=== PATIENT | female | born 1975 | race Caucasian/White ===

== ENCOUNTER 2018-03-14 15:29 | Emergency (ER) | payer MEDICAID ==
[~2018-03-14] VITALS: Ht 160 cm; Wt 68.0 kg
[~2018-03-14 15:29] MED LIST: SUCR1ORA2 PO
[2018-03-14] MEDS ORDERED: proCHLORperazine 10 MG/2 ml inj IV ONE (15:50)
[2018-03-14] MEDS ORDERED: diazepam 5mg tablet PO ONE ×3 (15:50→17:40)
[2018-03-14] MEDS ORDERED: diphenhydrAMINE 50 mg/ml inj IV ONE (15:50)
[2018-03-14] MEDS ORDERED: ketorolac trometh. 30mg/ml inj. IV ONE (15:50)
[2018-03-14] MEDS ORDERED: normal saline 1000ML IV soln IVB ONE (15:55)
[2018-03-14] MEDS ORDERED: valproate sod inj 500 MG in normal saline 100ml IV soln 95 ML IV ONE (16:50)
[2018-03-14 18:33] VITALS: BP 109/69
== END 2018-03-14 18:37 | disposition home or self-care (01) ==
LOC: ER 15:30
DX: G43.909 Migraine, unspecified, not intractable, without status migrainosus (principal); M54.2 Cervicalgia; K21.9 Gastro-esophageal reflux disease without esophagitis; Z88.0 Allergy status to penicillin; Z88.8 Allergy status to other drugs, medicaments and biological substances; Z90.710 Acquired absence of both cervix and uterus
CPT/HCPCS: 96365; 96375; 99284; J0780; J1200; J1885; J7030

== ENCOUNTER 2019-08-27 09:32 | Emergency (ER) | payer MEDICAID ==
[~2019-08-27] VITALS: Ht 160 cm; Wt 69.1 kg
[2019-08-27 09:42] VITALS: BP 120/82
[2019-08-27] MEDS ORDERED: ALBU8.5H8 IH (10:06)
[2019-08-27] MEDS ORDERED: BENZ-16 PO (10:06)
[2019-08-27] MEDS ORDERED: METH4TAB81 PO (10:06)
== END 2019-08-27 10:38 | disposition home or self-care (01) ==
LOC: ER 09:32
DX: J45.909 Unspecified asthma, uncomplicated (principal); K21.9 Gastro-esophageal reflux disease without esophagitis; Z90.710 Acquired absence of both cervix and uterus; Z87.891 Personal history of nicotine dependence; Z88.0 Allergy status to penicillin; Z88.8 Allergy status to other drugs, medicaments and biological substances; Z79.899 Other long term (current) drug therapy
CPT/HCPCS: 99283

== ENCOUNTER 2019-10-24 12:29 | Emergency (ER) | payer MEDICAID ==
[~2019-10-24] VITALS: Ht 157.5 cm; Wt 66.8 kg
[~2019-10-24 12:29] MED LIST changes: +ALBU8.5H8 IH; +METH4TAB81 PO
[2019-10-24 13:26] VITALS: BP 137/87
[2019-10-24] MEDS ORDERED: IBUP-1985 PO (13:38)
== END 2019-10-24 14:09 | disposition home or self-care (01) ==
LOC: ER 12:31
DX: S50.01XA Contusion of right elbow, initial encounter (principal); G43.909 Migraine, unspecified, not intractable, without status migrainosus; K21.9 Gastro-esophageal reflux disease without esophagitis; Z88.0 Allergy status to penicillin; Z88.8 Allergy status to other drugs, medicaments and biological substances; Z79.899 Other long term (current) drug therapy; W18.30XA Fall on same level, unspecified, initial encounter; Y93.89 Activity, other specified; Y92.89 Other specified places as the place of occurrence of the external cause; Y99.8 Other external cause status
CPT/HCPCS: 73080; 99283

== ENCOUNTER 2020-01-04 18:37 | Emergency (ER) | payer MEDICAID ==
[~2020-01-04] VITALS: Ht 157.5 cm; Wt 66.8 kg
[~2020-01-04 18:37] MED LIST changes: +IBUP-1985 PO
[2020-01-04 19:02] VITALS: BP 148/81
[2020-01-04] MEDS ORDERED: TRIA15CR61 TOP (22:27)
== END 2020-01-04 23:14 | disposition home or self-care (01) ==
LOC: ER 18:37
DX: R07.89 Other chest pain (principal); R21 Rash and other nonspecific skin eruption; M79.659 Pain in unspecified thigh; G43.909 Migraine, unspecified, not intractable, without status migrainosus; K21.9 Gastro-esophageal reflux disease without esophagitis; Z90.710 Acquired absence of both cervix and uterus; Z88.0 Allergy status to penicillin; Z88.8 Allergy status to other drugs, medicaments and biological substances; Z79.899 Other long term (current) drug therapy
CPT/HCPCS: 71120; 71130; 99284

== ENCOUNTER 2020-05-08 14:21 | Emergency (ER) | payer MEDICAID ==
[~2020-05-08] VITALS: Ht 157.5 cm; Wt 70.0 kg
[2020-05-08 14:26] VITALS: BP 138/102
[2020-05-08] MEDS ORDERED: dexamethasone sod phosphate 10mg/ml inj IV STA (14:39)
[2020-05-08] MEDS ORDERED: ketorolac tromethamine 15mg/ml inj. IV ONE (14:40)
[2020-05-08] MEDS ORDERED: diphenhydrAMINE 50 mg/ml inj IV ONE (14:40)
[2020-05-08] MEDS ORDERED: SUMAtriptan succ. 6 MG/0.5ml vial SQ ONE (14:40)
[2020-05-08] MEDS ORDERED: proCHLORperazine 10 MG/2 ml inj IV ONE (14:40)
[2020-05-08] MEDS ORDERED: diazepam inj 5 MG/ML inj. IV ONE (14:40)
[2020-05-08] MEDS ORDERED: dexamethasone 4mg tablet PO ONE (14:50)
[2020-05-08] MEDS ORDERED: proCHLORperazine 10mg tablet PO ONE (14:50)
[2020-05-08] MEDS ORDERED: diphenhydrAMINE 25mg capsule PO ONE (14:50)
[2020-05-08] MEDS ORDERED: diazepam 5mg tablet PO ONE (14:50)
[2020-05-08] MEDS ORDERED: ONDA4TAB6 PO (15:00)
[2020-05-08] MEDS ORDERED: PROC25SU31 RC (15:00)
[2020-05-08] MEDS ORDERED: SUMA25TA35 PO (15:00)
== END 2020-05-08 16:15 | disposition home or self-care (01) ==
LOC: ER 14:21
DX: G43.909 Migraine, unspecified, not intractable, without status migrainosus (principal); K21.9 Gastro-esophageal reflux disease without esophagitis; Z98.890 Other specified postprocedural states; Z88.0 Allergy status to penicillin; Z88.5 Allergy status to narcotic agent; Z79.899 Other long term (current) drug therapy
CPT/HCPCS: 96372; 96374; 99284; J1885; Q0163; J3030; Q0164

== ENCOUNTER 2020-08-28 11:02 | Emergency (ER) | payer MEDICAID ==
[~2020-08-28] VITALS: Ht 160 cm; Wt 63.0 kg
[~2020-08-28 11:02] MED LIST changes: +ONDA4TAB6 PO; +SUMA25TA35 PO
[2020-08-28 12:23] VITALS: BP 127/76
[2020-08-28] MEDS ORDERED: ketorolac tromethamine 15mg/ml inj. IM ONE (12:40)
[2020-08-28] MEDS ORDERED: ondansetron 4mg rapidly disintigrating tab PO ONE (12:40)
[2020-08-28] MEDS ORDERED: HYDROcodone/acetaminophen 5mg/325mg tablet PO ONE (12:40)
[2020-08-28] MEDS ORDERED: BUPIVAcaine 0.5% W/EPI /PF 30ml vial IM ONE (13:00)
[2020-08-28] MEDS ORDERED: triamcinolone acetonide 40mg/ml inj IM ONE (13:00)
[2020-08-28] MEDS ORDERED: cyclobenzaprine 10mg tablet PO ONE (13:55)
[2020-08-28] MEDS ORDERED: IBUP-1984 PO (14:02)
[2020-08-28] MEDS ORDERED: DEXA4TAB67 PO (14:02)
[2020-08-28] MEDS ORDERED: ORPH100T2 PO (14:02)
== END 2020-08-28 14:16 | disposition home or self-care (01) ==
LOC: ER 11:02
DX: M51.26 Other intervertebral disc displacement, lumbar region (principal); M25.551 Pain in right hip; G43.909 Migraine, unspecified, not intractable, without status migrainosus; K21.9 Gastro-esophageal reflux disease without esophagitis; Z90.710 Acquired absence of both cervix and uterus; Z88.0 Allergy status to penicillin; Z88.8 Allergy status to other drugs, medicaments and biological substances; Z79.899 Other long term (current) drug therapy
CPT/HCPCS: 72192; 96372; 99284; J1885; J3301

== ENCOUNTER 2021-03-06 09:16 | Emergency (ER) | payer MEDICAID ==
[~2021-03-06] VITALS: Ht 162.6 cm; Wt 60.0 kg
[~2021-03-06 09:16] MED LIST changes: +ALBU8.5H17 IH; -ALBU8.5H8 IH; +DEXA4TAB67 PO; +ORPH100T2 PO
[2021-03-06 09:20] VITALS: BP 115/81
== END 2021-03-06 11:09 | disposition home or self-care (01) ==
LOC: ER 09:16
DX: S62.637A Displaced fracture of distal phalanx of left little finger, initial encounter for closed fracture (principal); M79.645 Pain in left finger(s); G43.909 Migraine, unspecified, not intractable, without status migrainosus; K21.9 Gastro-esophageal reflux disease without esophagitis; Z90.710 Acquired absence of both cervix and uterus; Z88.0 Allergy status to penicillin; Z88.8 Allergy status to other drugs, medicaments and biological substances; Z79.899 Other long term (current) drug therapy; X58.XXXA Exposure to other specified factors, initial encounter; Y93.89 Activity, other specified; Y92.89 Other specified places as the place of occurrence of the external cause; Y99.8 Other external cause status
CPT/HCPCS: 29130; 73130; 99283

== ENCOUNTER 2021-05-11 22:35 | Emergency (ER) | payer MEDICAID ==
[~2021-05-11] VITALS: Ht 157.5 cm; Wt 62.3 kg
[2021-05-11 22:44] VITALS: BP 111/79
[2021-05-12] MEDS ORDERED: HYDROcodone/acetaminophen 5mg/325mg tablet PO ONE (02:50)
[2021-05-12] MEDS ORDERED: HYDR-3965 PO (02:56)
== END 2021-05-12 03:16 | disposition home or self-care (01) ==
LOC: ER 22:35
DX: M25.521 Pain in right elbow (principal); M25.531 Pain in right wrist; G43.909 Migraine, unspecified, not intractable, without status migrainosus; K21.9 Gastro-esophageal reflux disease without esophagitis; Z90.710 Acquired absence of both cervix and uterus; Z88.0 Allergy status to penicillin; Z88.8 Allergy status to other drugs, medicaments and biological substances; Z79.899 Other long term (current) drug therapy
CPT/HCPCS: 25605; 73080; 73100; 73110; 73200; 99284

== ENCOUNTER 2021-10-05 07:43 | Emergency (ER) | payer MEDICAID ==
[~2021-10-05] VITALS: Ht 157.5 cm; Wt 64.0 kg
[2021-10-05 08:02] VITALS: BP 139/84
[2021-10-05] MEDS ORDERED: LIDOcaine 5% patch TP STA (10:47)
[2021-10-05] MEDS ORDERED: ketorolac trometh. 30mg/ml inj. IM ONE (10:50)
[2021-10-05] MEDS ORDERED: HYDR-3972 PO (10:53)
== END 2021-10-05 11:09 | disposition home or self-care (01) ==
LOC: ER 07:43
DX: M25.511 Pain in right shoulder (principal); G43.909 Migraine, unspecified, not intractable, without status migrainosus; K21.9 Gastro-esophageal reflux disease without esophagitis; Z88.0 Allergy status to penicillin; Z88.8 Allergy status to other drugs, medicaments and biological substances
CPT/HCPCS: 73030; 96372; 99283; J1885

== ENCOUNTER 2023-03-31 09:52 | Emergency (ER) | payer MEDICAID ==
[~2023-03-31] VITALS: Ht 157.5 cm; Wt 74.4 kg
[~2023-03-31 09:52] MED LIST changes: -ORPH100T2 PO; +ORPH100T4 PO
[2023-03-31] MEDS ORDERED: clindamycin phosphate 150mg/ml inj. IM ONE (13:50)
[2023-03-31] MEDS ORDERED: CLIN300C54 PO (13:58)
[2023-03-31] MEDS ORDERED: NAPR-1154 PO (13:58)
[2023-03-31] MEDS ORDERED: clindamycin 600mg/D5W 50ml 50 ML IV SCH (14:00)
[2023-03-31] MEDS ORDERED: clindamycin phosphate 150mg/ml inj. IV ONE (14:00)
[2023-03-31] MEDS ORDERED: ketorolac tromethamine 15mg/ml inj. IV ONE (15:30)
[2023-03-31 15:58] VITALS: BP 124/81; PULSE 68; RESP 18; TEMP 98.1; O2SAT 99
== END 2023-03-31 16:12 | disposition home or self-care (01) ==
LOC: ER 09:52
DX: K04.7 Periapical abscess without sinus (principal); K21.9 Gastro-esophageal reflux disease without esophagitis; G43.909 Migraine, unspecified, not intractable, without status migrainosus; Z88.0 Allergy status to penicillin; Z88.8 Allergy status to other drugs, medicaments and biological substances; Z79.899 Other long term (current) drug therapy
CPT/HCPCS: 96365; 96375; 99284; J1885; J3490

== ENCOUNTER → 2024-10-13 | Emergency (ER) | payer MEDICAID ==
[~2024-10-13] VITALS: Ht 157.5 cm; Wt 77.2 kg
[~2024-10-13] MED LIST changes: +NAPR-1154 PO; +SENN-302 PO; +iohexol 300mg/ml 100ml inj. ONE
--- NOTE | 2024-10-13 13:53 | ELECTROCARDIOGRAPH REPORT ---
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 Zhou Rothman Measurements Intervals [place] Rate: 116 P: 43 OK: 159 QRS: 79 QRSD: 98 T: -54 QT: 323 QTc: 449 Interpretive Statements Sinus tachycardia Ventricular premature complex Borderline ST depression, diffuse leads Abnormal T, consider ischemia, diffuse leads Electronically Signed On 10-13-2024 15:47:[address] Zhou Rothman Please click the below link to view image of tracing.
[2024-10-13 14:23] LABS: BASOPHILS % (AUTO) 0.3 % (0-1); EOSINOPHILS # (AUTO) 0.1 X10'3 (0-0.9); EOSINOPHILS % (AUTO) 1.4 % (0-6); HEMATOCRIT 43.5 % (35.0-45.0); HEMOGLOBIN 14.7 g/dl (12.0-16.0); LYMPHOCYTES # (AUTO) 2.7 X10'3 (1.1-4.8); LYMPHOCYTES % (AUTO) 28.1 % (21-51); MEAN CORPUSCULAR HEMOGLOBIN 31.6 PG (27.0-31.0); MEAN CORPUSCULAR HGB CONC 33.8 g/dL (33.0-36.5); MEAN CORPUSCULAR VOLUME 93.7 FL (78-98); MONOCYTES # (AUTO) 0.7 X10'3 (0-0.9); MONOCYTES % (AUTO) 7.2 % (2-12); NEUTROPHILS # (AUTO) 6.1 X10'3 (1.8-7.7); PLATELET COUNT 343 X10'3 (140-440); RED BLOOD COUNT 4.64 X10'6 (4.20-5.60); RED CELL DISTRIBUTION WIDTH 14.6 % (11.5-14.5); WHITE BLOOD COUNT 9.6 X10'3 (4.5-11.0)
[2024-10-13 14:46] LABS: ALBUMIN 4.2 G/DL (3.4-5.0); ANION GAP 13 (8-16); BLOOD UREA NITROGEN 8 MG/DL (7-18); BUN/CREATININE RATIO 10.1 (10.0-20.0); CALCIUM 8.8 MG/DL (8.5-10.1); CHLORIDE 101 MMOL/L (99-107); CREATININE 0.79 MG/DL (0.40-0.90); GLUCOSE 117 MG/DL (70-104); POTASSIUM 3.4 MMOL/L (3.5-5.1); SODIUM 139 MMOL/L (135-145); TOTAL CARBON DIOXIDE 25.1 MMOL/L (24-32); eCRCL 67 ML/MIN; eGFR 77 ML/MIN
--- NOTE | 2024-10-13 15:51 | Physician Documentation ---
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 Patient also states she has not passed gas in about two weeks. Patient admits to two separate surgeries for hemorrhoids as well as polyps in the rectum. Patient states she has sensation of abdominal fullness and bloating and lower abdominal pain as well as upper abdominal tenderness. Patient has no other concern or complaint at this time. Patient denies any chest pain or shortness of breath or nausea, vomiting, diarrhea. Patient is concerned for bowel obstruction. Medication Reconciliation Allergies: Coded Allergies: Penicillins (Unverified Allergy, Unknown, hives, 10/13/24) pseudoephedrine (Verified Allergy, Unknown, paliptations, hives, 10/13/24) Scheduled Dexamethasone (Decadron), 1 TAB PO Q12H Ibuprofen (Ibuprofen), 1 TAB PO Q8H Methylprednisolone (Medrol Dosepak), 6 TAB PO UD Naproxen (Naprosyn), 1 TAB PO Q12H Orphenadrine Citrate (Norflex), 1 TAB PO Q12H PRN Sucralfate (Carafate), 10 ML PO QID Scheduled PRN Albuterol Sulfate (Proair Hfa), 2 PUFFS IH Q6H PRN for SOB or wheezing Ondansetron Hcl (Zofran), 1 TAB PO Q6H PRN for nausea/vomiting Sumatriptan Succinate (Imitrex), 1-2 TAB PO Q2H PRN PRN for headache Past Medical History Past Medical History: Migraine, GERD, Hernia Past Surgical History: hysterectomy, orthopedic surgeries Alcohol Use: None Drug Use: none Lives In: Home Review of Systems Constitutional: Denies: chills, fever, weakness Eyes: Denies: pain, blurred vision ENT: Denies: ear pain, nose pain, throat pain, mouth pain Respiratory: Denies: cough, shortness of breath Cardiovascular: Denies: chest pain, palpitations Gastrointestinal: Denies: abdominal pain, nausea, vomiting Genitourinary: Denies: burning, dysuria Female Genitalia: Denies: vaginal discharge, pelvic pain Neurological: Denies: headache, dizziness Musculoskeletal: Denies: pain, swelling Integumentary: Denies: rash, lesions Allergic/Immunologic: Denies: hives, itching Hematologic/Lymphatic: Denies: no symptoms reported Psychiatric: Denies: depression, anxiety Physical Exam Vital Signs: Temperature: 98.2, Heart Rate: 122, Respiratory Rate: 24, BP: 176/86, Pulse Oximetry: 98, Weight: 77.200 Physical Exam General: Awake and Alert, no acute distress. HEENT: Conjunctiva pink, Sclera clear, Mucus Membranes moist. Neck: Supple without masses and tenderness. Resp: Unlabored. Lungs clear to auscultation bilaterally. Heart: Regular Rate and rhythm, normal S1 and S2 without murmur, rub or gallop. Abdomen: Patient does appear mildly bloated, abdomen is soft and mild tenderness in the epigastric and lower abdominal area. Rebound tenderness negative, guarding negative. Extremities: No cyanosis,clubbing or edema. Skin: Warm and Dry. Progress Results/Orders Results/Orders Orders - ERASMO PARTIDA PAC Ct Abdomen Pelvis (10/13/24 15:49) Vital Signs 10/13/24 13:44 Temp 98.2 Pulse 122 Resp 24 B/P (MAP) 176/86 Pulse Ox 98 Laboratory Tests Test 10/13/24 13:55 White Blood Count 9.6 Red Blood Count 4.64 Hemoglobin 14.7 Hematocrit 43.5 Mean Corpuscular Volume 93.7 Mean Corpuscular Hemoglobin 31.6 H Mean Corpuscular Hemoglobin Concent 33.8 Red Cell Distribution Width 14.6 H Platelet Count 343 Mean Platelet Volume 8.0 Neutrophils (%) (Auto) 63.0 Lymphocytes (%) (Auto) 28.1 Monocytes (%) (Auto) 7.2 Eosinophils (%) (Auto) 1.4 Basophils (%) (Auto) 0.3 Neutrophils # (Auto) 6.1 Lymphocytes # (Auto) 2.7 Monocytes # (Auto) 0.7 Eosinophils # (Auto) 0.1 Basophils # (Auto) 0.0 CBC Comment Sodium Level 139 Potassium Level 3.4 L Chloride Level 101 Carbon Dioxide Level 25.1 Anion Gap 13 Blood Urea Nitrogen 8 Creatinine 0.79 Estimated GFR/1.73 m2 77 BUN/Creatinine Ratio 10.1 Glucose Level 117 H Calcium Level 8.8 Albumin 4.2 Chemistry Comments EKG/XRAY/CT/US/VASC/MRI CT : Impression CAT SCAN Patient: RUDY IBANEZ Medical Record: [id number] [facility] 1975, Age: 48 Sex: Female Location: ER Patient Status: [facility] ER Service Date/Time: 10/13/242009 Ordering Physician: ERASMO PARTIDA PAC Exam: CT ABDOMEN PELVIS Exam: CT CT ABDOMEN PELVIS W/ IV CONTRAST History: abd pain/ possible bowel osbtruction Comparison Study: None TECHNIQUE: A digital assistant film editor image was obtained. During the uneventful, intravenous administration of contrast material, multislice data acquisition was obtained through the abdomen and pelvis. The data set was subsequently reconstructed into axial images. Images reviewed on a wrist examination is an examination of axial and multiplanar reformations using a variety of window levels and settings. RADIATION DOSE: DLP 1063.63 mGy.cm; CTDI vol 22.14 mGy. Findings: Lungs: The lung bases are clear. Heart: No cardiomegaly or pericardial effusion. Liver: The liver measures 18.7 cm in craniocaudal dimension. Gallbladder: Unremarkable. Spleen: Unremarkable Pancreas: Unremarkable Adrenals: Unremarkable Kidneys: Unremarkable GI tract: Unremarkable. No obstruction. : Unremarkable. Vasculature: Unremarkable Lymphadenopathy: Absent Peritoneum: No ascites Musculoskeletal: Unremarkable Soft tissues: Unremarkable Impression: 1. No acute abdominopelvic abnormalities. 2. No evidence of bowel obstruction. 3. Hepatomegaly. Electronically Signed by:SHERINE CARABALLO DO Date & Time: 10/13/242053 Dictated by: SHERINE CARABALLO DO Dictation date and time: 10/13/242009 Primary Care Provider: NO PRIMARY CARE PROVIDER cc: ERASMO PARTIDA PAC ~ Medical Decision Making Findings Patient is seen today with complaints of not having a bowel movement in 6-7 days. Patient also states she has not passed gas in about two weeks. Patient admits to two separate surgeries for hemorrhoids as well as polyps in the rectum. Patient states she has sensation of abdominal fullness and bloating and lower abdominal pain as well as upper abdominal tenderness. Patient has no other concern or complaint at this time. Patient denies any chest pain or shortness of breath or nausea, vomiting, diarrhea. Patient is concerned for bowel obstruction. CT scan of the abdomen shows no sign of bowel obstruction, labs are relatively unremarkable. Patient was also seen by Dr. Amezcua and shared decision-making was utilized with the patient today. Patient agreed to follow up with primary care for referral to GI specialist as well as OB Gyne for management of menopausal symptoms as well as for upper and lower endoscopies and consultation by GI specialist. Patient voiced understanding. Patient will return to ED with any worsening, concerning or changing symptoms. Departure Disposition: HOME / SELF CARE / HOMELESS Impression: Primary Impression: Abdominal pain Qualified Codes: R10.84 - Generalized abdominal pain Condition: Stable Discharge Instructions: Abdominal Pain (Nonspecific) Additional Instructions: CT scan of the abdomen shows no sign of bowel obstruction, labs are relatively unremarkable. Patient was also seen by Dr. Amezcua and shared decision-making was utilized with the patient today. Patient agreed to follow up with primary care for referral to GI specialist as well as OB Gyne for management of menopausal symptoms as well as for upper and lower endoscopies and consultation by GI specialist. Patient voiced understanding. Patient will return to ED with any worsening, concerning or changing symptoms. Prescription of senna and docusate sodium sent to patient pharmacy to be taken as directed. Referrals: NO PRIMARY CARE PROVIDER (PCP) Prescriptions Sennosides/Docusate Sodium (Senna Plus 8.6-50 mg Tablet) 8.6 Mg-50 Mg Tablet 2 TAB PO HS for 14 Days, #28 TAB 0 Refills Prov: ERASMO PARTIDA 10/13/24 Signature Scribe Signature: No scribe Attestation: No scribe ERASMO PARTIDA October 13, 2024 15:51
--- NOTE | 2024-10-13 20:56 | RADIOLOGY REPORT ---
Exam: CT CT ABDOMEN PELVIS W/ IV CONTRAST History: abd pain/ possible bowel osbtruction Comparison Study: None TECHNIQUE: A digital feller buncher operator image was obtained. During the uneventful, intravenous administration of c ontrast material, multislice data acquisition was obtained through the abdomen and pelvis. The data s et was subsequently reconstructed into axial images. Images reviewed on a wrist examination is an exa mination of axial and multiplanar reformations using a variety of window levels and settings. RADIATION DOSE: DLP 1063.63 mGy.cm; CTDI vol 22.14 mGy. Findings: Lungs: The lung bases are clear. Heart: No cardiomegaly or pericardial effusion. Liver: The liver measures 18.7 cm in craniocaudal dimension. Gallbladder: Unremarkable. Spleen: Unremarkable Pancreas: Unremarkable Adrenals: Unremarkable Kidneys: Unremarkable GI tract: Unremarkable. No obstruction. : Unremarkable. Vasculature: Unremarkable Lymphadenopathy: Absent Peritoneum: No ascites Musculoskeletal: Unremarkable Soft tissues: Unremarkable Impression: 1. No acute abdominopelvic abnormalities. 2. No evidence of bowel obstruction. 3. Hepatomegaly.
[2024-10-13] MEDS: magnesium hydroxide 30ml (MOM) UD suspension PO STA (21:03)
[2024-10-13] MEDS: sennosides/docusate sodium tablet PO STA (21:03)
[2024-10-13 21:55] VITALS: BP 142/87; PULSE 80; RESP 14; TEMP 98.2; O2SAT 97
[2024-10-13 21:57] LABS: BILIRUBIN,URINE NEGATIVE (Neg); CLARITY,URINE CLEAR (Clear); COLOR,URINE YELLOW (Yellow); GLUCOSE, URINE NEGATIVE (Neg); KETONES,URINE TRACE mg/dl (Neg); LEUKOCYTE ESTERASE ,URINE NEGATIVE (Neg); NITRITES, URINE NEGATIVE (Neg); OCCULT BLOOD,URINE SMALL (Neg); PH,URINE 5.5 (4.8-8.0); PROTEIN,URINE NEGATIVE (Neg); UROBILINOGEN,URINE 0.2 E.U/dL (0.2-1.0)
[2024-10-13 22:03] LABS: UA COLLECTION TYPE CLN CATCH MIDSTREAM
[2024-10-13 22:04] LABS: BACTERIA,URINE 1+ /HPF (Neg); SQUAMOUS EPITHELIAL CELL,UR MODERATE /LPF (FEW); WBC,URINE NONE SEEN /HPF (0-4)
== END | disposition home or self-care (01) ==
LOC: ER 13:38
DX: R10.30 Lower abdominal pain, unspecified (principal); K21.9 Gastro-esophageal reflux disease without esophagitis; G43.909 Migraine, unspecified, not intractable, without status migrainosus; Z88.0 Allergy status to penicillin; Z88.8 Allergy status to other drugs, medicaments and biological substances; Z90.710 Acquired absence of both cervix and uterus; Z79.1 Long term (current) use of non-steroidal anti-inflammatories (NSAID); Z79.899 Other long term (current) drug therapy
CPT/HCPCS: 36415; 74177; 80048; 81001; 85025; 93005; 99285; Q9967

== ENCOUNTER 2025-04-05 11:43 | Day surgery (SDC) | payer MEDICAID ==
[2025-04-01 10:43] LABS: MEAN PLATELET VOLUME 7.8 FL (7.4-10.4); RED CELL DISTRIBUTION WIDTH 14.4 % (11.5-14.5)
[2025-04-01 10:55] LABS: APTT 25 SECONDS (22-32)
[2025-04-01 10:58] LABS: CHOL/HDL RATIO 2.9 (0.00-4.99); CREATININE 0.85 MG/DL (0.40-0.90); LDL CHOLESTEROL 136 MG/DL (50-100); TOTAL CARBON DIOXIDE 28.8 MMOL/L (24-32); eGFR 71 ML/MIN
[2025-04-01 11:00] LABS: INR 0.9 INR
[2025-04-05] VITALS (8 sets, daily range): BP systolic 118–156; BP diastolic 76–85; PULSE 72–85; RESP 16; TEMP 99.1; O2SAT 96–97
[~2025-04-05] VITALS: Ht 160 cm; Wt 84.1 kg
[~2025-04-05 11:43] MED LIST changes: -IBUP-1985 PO; +IBUP600T52 PO; -iohexol 300mg/ml 100ml inj. ONE
[2025-04-05] MEDS ORDERED: PANT40SU2 PO (12:27)
[2025-04-05] MEDS ORDERED: PYRI250T8 PO (12:27)
[2025-04-05] MEDS ORDERED: CHOL500044 PO (12:29)
--- NOTE | 2025-04-05 13:04 | ELECTROCARDIOGRAPH REPORT ---
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 NORBERT Landers Measurements Intervals [place] Rate: 84 P: 30 CO: 156 QRS: 33 QRSD: 99 T: 12 QT: 372 QTc: 440 Interpretive Statements Sinus rhythm Probable left atrial enlargement Electronically Signed On 04-05-2025 18:49:[address] NORBERT Landers Please click the below link to view image of tracing.
[2025-04-05] MEDS ORDERED: heparin 1,000unit/ml 10ml vial 0 ML ONE (13:31)
[2025-04-05] MEDS ORDERED: midazolam 1 mg/ML 2ml injection ONE ×2 (13:31→14:05)
[2025-04-05] MEDS ORDERED: fentaNYL/PF 50MCG/1 ML 2ML syringe ONE (13:31)
[2025-04-05] MEDS ORDERED: LIDOcaine 1% 30ml preserv. free vial ONE (13:31)
--- NOTE | 2025-05-01 09:10 | CARDIOLOGY REPORT ---
DATE OF SERVICE: 04/05/2025 DICTATING PHYSICIAN: Bobbi Pacheco MD CARDIAC CATHETERIZATION REPORT DATE OF STUDY: 04/05/2025. PROCEDURES: 1. Left heart catheterization. 2. Selective coronary angiography. 3. Left ventriculography. 4. Conscious sedation monitoring time for 15 minutes. INDICATION: Continuous chest pain. PHYSICIAN: Bobbi Pacheco M.D. DESCRIPTION OF PROCEDURE: After informed consent was obtained, the patient was brought to the lab where she was prepped and draped in the usual sterile fashion. A 6 Barb[place] sheath was inserted into the right femoral artery. Next, using a pigtail catheter followed by a JL4 and a JR4 catheter, left ventriculography and selective coronary angiography was performed. HEMODYNAMICS: For the patient's hemodynamics, please refer to the event log. There was no significant gradient across the aortic valve on catheter pullback. FINDINGS: The patient's coronary arteries are normal caliber vessels free of significant disease. Left ventriculography revealed the presence of normal left ventricular function. Left ventricular end diastolic pressure was 4 mmHg. IMPRESSION: 1. Normal coronary arteries. 2. Normal left ventricular function. 3. Left ventricular end diastolic pressure 4 mmHg. Bobbi Pacheco MD TID: [id number] RECEIPT: [id number]
== END 2025-04-05 16:30 | disposition home or self-care (01) ==
LOC: SSTAY O 11:43
PROVIDERS: ATTEND Student in an Organized Health Care Education/Training Program
DX: R07.9 Chest pain, unspecified (principal); I10 Essential (primary) hypertension; Z88.0 Allergy status to penicillin; Z95.0 Presence of cardiac pacemaker; Z87.891 Personal history of nicotine dependence; Z79.899 Other long term (current) drug therapy
CPT/HCPCS: 36415; 80048; 80061; 85025; 85610; 85730; 93005; 93458; 99152; J1644; J2003; J2250; J3010; J7030; Q0163; Q9967; 99153; A6258